=== PATIENT | male | born 1970 | race Caucasian/White ===

== ENCOUNTER 2022-09-27 12:35 | Emergency (ER) | payer SELFPAY ==
[2022-09-27] MEDS ORDERED: Sodium Chloride 0.9% 10 ML Syringe FLUSH PRN (12:45)
[2022-09-27] MEDS ORDERED: Morphine 4 MG/ML VIAL IVPUSH ONE (12:47)
[2022-09-27] MEDS ORDERED: Sodium Chloride 0.9% 1,000 ML IV SCH (13:00)
[2022-09-27 13:05] LABS: BASOPHILS ABSOLUTE AUTO 0.2 x10-3/uL (0.0-0.3); BASOPHILS PERCENT AUTO 1.4 % (0.3-3.8); EOSINOPHILS ABSOLUTE AUTO 0.2 x10-3/uL (0.0-0.6); EOSINOPHILS PERCENT AUTO 1.6 % (0.1-6.8); HEMATOCRIT 43.1 % (38.3-50.1); HEMOGLOBIN 14.8 g/dL (12.9-17.7); LYMPHOCYTES ABSOLUTE AUTO 2.6 x10-3/uL (0.5-4.5); MEAN CORPUSCULAR HEMOGLOBIN 31.5 pg (27.0-33.3); MEAN CORPUSCULAR HGB CONC 34.4 g/dL (28.7-35.3); MEAN CORPUSCULAR VOLUME 91.6 fL (80.8-98.7); MEAN PLATELET VOLUME 7.6 fL (6.7-11.0); MONOCYTES ABSOLUTE AUTO 0.7 x10-3/uL (0.0-1.2); MONOCYTES PERCENT AUTO 6.4 % (5.5-15.2); NEUTROPHILS ABSOLUTE AUTO 7.8 x10-3/uL (1.7-6.9); NEUTROPHILS PERCENT AUTO 67.6 % (40.3-71.8); PLATELET COUNT,PLT 308 x10(3)uL (117-477); RED BLOOD CELL COUNT 4.71 x10(6)uL (3.90-5.90); RED CELL DISTRIBUTION WIDTH 13.8 % (12.4-15.0); WHITE BLOOD CELL COUNT,WBC 11.5 x10-3/uL (3.2-10.1)
[2022-09-27 13:13] LABS: ALANINE AMINOTRANSFERASE,ALT 27 U/L (12-36); ALBUMIN 3.7 g/dL (3.5-5.2); ALKALINE PHOSPHATASE 100 IU/L (56-112); ASPARTATE AMNIOTRANSFERASE,AST 27 IU/L (5-25); BILIRUBIN TOTAL 0.5 mg/dL (0.1-1.3); BLOOD UREA NITROGEN,BUN 11 mg/dL (7-18); CALCIUM 8.8 mg/dL (8.6-10.2); CARBON DIOXIDE,CO2 22 mmol/L (21-32); CHLORIDE,CL 97 mmol/L (100-110); ESTIMATED GFR 89 mL/min (>60); GLUCOSE RANDOM 192 mg/dL (80-116); INR 0.99 (1.00-1.24); POTASSIUM,K 2.9 mmol/L (3.5-5.3); PROTEIN TOTAL,TP 7.6 g/dL (6.0-8.0); PROTHROMBIN TIME 10.2 sec (9.0-11.1); PTT,PARTIAL THROMBOPLSTIN TIME 26.7 SECONDS (24.4-33.2); SODIUM,NA 135 mmol/L (135-145)
[2022-09-27] MEDS ORDERED: LORazepam 2 MG/ML SDV IVPUSH ONE (13:26)
[2022-09-27] MEDS ORDERED: amLODIPine 10 MG Tab PO STA (14:42)
[2022-09-27] MEDS ORDERED: Diltiazem 25 MG/5 ML SDV IVPUSH ONE (16:05)
[2022-09-27 20:05] VITALS: BP 167/81; PULSE 64
== END 2022-09-27 14:52 ==
LOC: FB.ED 12:35
DX: S62.102A Fracture of unspecified carpal bone, left wrist, initial encounter for closed fracture (principal); S42.402A Unspecified fracture of lower end of left humerus, initial encounter for closed fracture; S06.6X0A Traumatic subarachnoid hemorrhage without loss of consciousness, initial encounter; W17.89XA Other fall from one level to another, initial encounter
CPT/HCPCS: 36415; 70450; 71045; 72125; 80053; 85025; 85610; 85730; 93005; 93010; 96374; 96375; 99285; 99285-25; A9270-GY; J2060; J2270; J3490; J7030

== ENCOUNTER 2022-10-04 18:25 | Emergency (ER) | payer SELFPAY ==
[2022-10-04] MEDS ORDERED: HYDROmorphone 2 MG/ML SDV IM ONE (19:02)
[2022-10-04] MEDS ORDERED: Sodium Chloride 0.9% 10 ML Syringe FLUSH PRN (20:53)
[2022-10-04 21:09] LABS: BASOPHILS ABSOLUTE AUTO 0.1 x10-3/uL (0.0-0.3); BASOPHILS PERCENT AUTO 0.4 % (0.3-3.8); EOSINOPHILS ABSOLUTE AUTO 0.2 x10-3/uL (0.0-0.6); EOSINOPHILS PERCENT AUTO 1.6 % (0.1-6.8); HEMATOCRIT 43.6 % (38.3-50.1); HEMOGLOBIN 14.7 g/dL (12.9-17.7); LYMPHOCYTES ABSOLUTE AUTO 2.5 x10-3/uL (0.5-4.5); LYMPHOCYTES PERCENT AUTO 18.9 % (15.8-45.3); MEAN CORPUSCULAR HGB CONC 33.7 g/dL (28.7-35.3); MEAN CORPUSCULAR VOLUME 91.8 fL (80.8-98.7); MEAN PLATELET VOLUME 7.2 fL (6.7-11.0); MONOCYTES PERCENT AUTO 7.4 % (5.5-15.2); NEUTROPHILS ABSOLUTE AUTO 9.7 x10-3/uL (1.7-6.9); NEUTROPHILS PERCENT AUTO 71.7 % (40.3-71.8); PLATELET COUNT,PLT 334 x10(3)uL (117-477); RED BLOOD CELL COUNT 4.75 x10(6)uL (3.90-5.90); RED CELL DISTRIBUTION WIDTH 13.7 % (12.4-15.0); WHITE BLOOD CELL COUNT,WBC 13.5 x10-3/uL (3.2-10.1)
[2022-10-04 21:11] LABS: BLOOD UREA NITROGEN,BUN 9 mg/dL (7-18); BUN/CREATININE RATIO 11.3 (9-20); CALCIUM 8.7 mg/dL (8.6-10.2); CARBON DIOXIDE,CO2 31 mmol/L (21-32); CHLORIDE,CL 97 mmol/L (100-110); CREATININE 0.8 mg/dL (0.70-1.30); EST CRCL DRUG DOSING (CG) 102.13 mL/min; ESTIMATED GFR 105 mL/min (>60); GLUCOSE RANDOM 120 mg/dL (80-116); POTASSIUM,K 3.6 mmol/L (3.5-5.3); SODIUM,NA 135 mmol/L (135-145)
[2022-10-04 21:17] LABS: A/G RATIO 0.9; ALANINE AMINOTRANSFERASE,ALT 33 U/L (12-36); ALBUMIN 3.6 g/dL (3.5-5.2); ALKALINE PHOSPHATASE 89 IU/L (56-112); ASPARTATE AMNIOTRANSFERASE,AST 20 IU/L (5-25); BILIRUBIN TOTAL 0.5 mg/dL (0.1-1.3); PROTEIN TOTAL,TP 7.5 g/dL (6.0-8.0)
[2022-10-04 21:19] LABS: INR 0.98 (1.00-1.24); PROTHROMBIN TIME 10.1 sec (9.0-11.1)
[2022-10-04 21:33] VITALS: BP 154/73
[2022-10-04 21:34] LABS: PTT,PARTIAL THROMBOPLSTIN TIME 27.5 SECONDS (24.4-33.2)
[2022-10-04] MEDS ORDERED: Morphine 4 MG/ML VIAL IVPUSH ONE (21:36)
[2022-10-04 23:31] VITALS: PULSE 51
[2022-10-05] MEDS ORDERED: Morphine 4 MG/ML VIAL ONE (08:04)
== END 2022-10-04 21:53 ==
LOC: FB.ED 18:25
DX: R51.9 Headache, unspecified (principal); M54.2 Cervicalgia; W13.2XXA Fall from, out of or through roof, initial encounter
CPT/HCPCS: 36415; 70450; 80053; 85025; 85610; 85730; 96372; 96374; 99284; 99285; J1170; J2270; J3490